=== PATIENT | male | born 1990 | race Caucasian/White ===

== ENCOUNTER 2016-12-15 23:14 | Emergency (ER) | payer OTHER ==
[2016-12-16] MEDS ORDERED: NORMAL SALINE 1000 ML 1,000 ML IV ONE (06:28)
[2016-12-16 07:14] LABS: ABSOLUTE BASOPHILS # (AUTO) 0.1 10^3/uL (0.0-0.2); ABSOLUTE EOSINOPHILS # (AUTO) 0.2 10^3/uL (0.0-0.6); ABSOLUTE LYMPHOCYTES (AUTO) 1.4 10^3/uL (0.5-4.7); ABSOLUTE MONOCYTES (AUTO) 1.1 10^3/uL (0.1-1.4); ABSOLUTE NEUT (AUTO) 9.5 10^3/uL (1.7-8.2); BASOPHILS % (AUTO) 0.4 % (0-2); EOSINOPHILS % (AUTO) 1.7 % (0-6); HEMOGLOBIN 15.9 g/dL (13.5-17.0); HGB HCT DIFFERENCE 2.7; LYMPHOCYTES % (AUTO) 11.7 % (13-45); MEAN CORPUSCULAR HEMOGLOBIN 31.4 pg (27.0-33.4); MEAN CORPUSCULAR HGB CONC 35.4 g/dL (32.0-36.0); MEAN CORPUSCULAR VOLUME 89 fl (80-97); MONOCYTES % (AUTO) 8.6 % (3-13); RED BLOOD COUNT 5.08 10^6/uL (4.35-5.55); RED CELL DISTRIBUTION WIDTH 13.3 % (11.5-14.0); SEGMENTED NEUTROPHILS % (AUTO) 77.6 % (42-78); WHITE BLOOD COUNT 12.3 10^3/uL (4.0-10.5)
--- NOTE | 2016-12-16 07:18 | EKG REPORT ---
SEVERITY:- NORMAL ECG - SINUS RHYTHM : Confirmed by: Uday Grullon MD 16-Dec-2016 07:18:07
[2016-12-16 07:37] LABS: ANION GAP 13 (5-19); BLOOD UREA NITROGEN 12 mg/dL (7-20); CALCIUM 9.9 mg/dL (8.4-10.2); CARBON DIOXIDE 26 mmol/L (22-30); CHLORIDE 102 mmol/L (98-107); CREATINE KINASE 79 U/L (55-170); CREATININE RESULT 0.86 mg/dL (0.52-1.25); GLUCOSE 96 mg/dL (75-110); POTASSIUM 4.3 mmol/L (3.6-5.0); SODIUM 141.2 mmol/L (137-145)
[2016-12-16] MEDS ORDERED: KETOROLAC TROMETHAMINE INJ/PF 30 MG/1 ML SDV IV ONE (07:38)
[2016-12-16 08:23] LABS: APPEARANCE,URINE CLEAR; BILIRUBIN,URINE NEGATIVE (NEGATIVE); GLUCOSE, URINE NEGATIVE (NEGATIVE); KETONES,URINE NEGATIVE (NEGATIVE); LEUKOCYTE ESTERASE,URINE NEGATIVE (NEGATIVE); NITRITE,URINE NEGATIVE (NEGATIVE); PROTEIN,URINE NEGATIVE (NEGATIVE); UROBILINOGEN,URINE NEGATIVE mg/dL (<2.0)
[2016-12-16 08:46] LABS: URINE BARBITURATES SCREEN NEGATIVE; URINE METHADONE SCREEN NEGATIVE; URINE OPIATES LOW NEGATIVE; URINE PHENCYCLIDINE SCREEN NEGATIVE
[2016-12-16 09:32] VITALS: BP 123/70
--- NOTE | 2016-12-16 09:39 | ER Document Report ---
ED General - General Chief Complaint: Pain All Over Stated Complaint: RAPID HEART RATE/SORE THROAT TRAVEL OUTSIDE OF THE [place] IN LAST 30 DAYS: No - HPI Patient complains to provider of: elevated heart rate myalgias Notes: Patient coming in for evaluation of elevated heart rate feeling fatigued with diffuse myalgias. Patient states similar feeling when he was diagnosed pericarditis. Patient denies getting a flu shot. Patient states no sick contacts no recent antibiotics. Patient upon my evaluation states no medical problems resting comfortably in the bed. While sleeping patient does have a resting heart rate of 90 upon awakening patient's Re: Does go to 100 115. Denies any recent trauma travel denies history of blood clots nausea history of DVT PE - Related Data Allergies/Adverse Reactions: No Known Allergies Allergy (Unverified 12/15/16 23:38) Past Medical History - Social History Smoking Status: Never Smoker Chew tobacco use (# tins/day): No Frequency of alcohol use: None Drug Abuse: None Family History: None Patient has suicidal ideation: No Patient has homicidal ideation: No Renal/ Medical History: Denies: Hx Peritoneal Dialysis Surgical Hx: Negative - Immunizations Hx Diphtheria, Pertussis, Tetanus Vaccination: Yes Review of Systems - Review of Systems Constitutional: Weakness, Other - Myalgias EENT: No symptoms reported Cardiovascular: Palpitations Respiratory: No symptoms reported Gastrointestinal: No symptoms reported Genitourinary: No symptoms reported Male Genitourinary: No symptoms reported Musculoskeletal: No symptoms reported Skin: No symptoms reported Hematologic/Lymphatic: No symptoms reported Neurological/Psychological: No symptoms reported -: Yes All other systems reviewed and negative Physical Exam - Vital signs Vitals: Temp Pulse Resp BP Pulse Ox 98.6 F 110 H 22 H 143/97 H 97 12/15/16 23:38 12/15/16 23:38 12/15/16 23:38 12/15/16 23:38 12/15/16 23:38 Interpretation: Tachycardic - General General appearance: Appears well, Alert - HEENT Head: Normocephalic, Atraumatic Eyes: Normal Pupils: PERRL - Respiratory Respiratory status: No respiratory distress Chest status: Nontender Breath sounds: Normal Chest palpation: Normal - Cardiovascular Rhythm: Tachycardia Heart sounds: Normal auscultation Murmur: No - Abdominal Inspection: Normal Distension: No distension Bowel sounds: Normal Tenderness: Nontender Organomegaly: No organomegaly - Back Back: Normal, Nontender - Extremities General upper extremity: Normal inspection, Nontender, Normal color, Normal ROM , Normal temperature General lower extremity: Normal inspection, Nontender, Normal color, Normal ROM , Normal temperature, Normal weight bearing. No: Dallin's sign - Neurological Neuro grossly intact: Yes Cognition: Normal Orientation: AAOx4 [place] Coma Scale Eye Opening: Spontaneous [place] Coma Scale Verbal: Oriented [place] Coma Scale Motor: Obeys Commands [place] Coma Scale Total: 15 Speech: Normal Motor strength normal: LUE, RUE, LLE, RLE Sensory: Normal - Psychological Associated symptoms: Normal affect, Normal mood - Skin Skin Temperature: Warm Skin Moisture: Dry Skin Color: Normal Course - Re-evaluation Re-evalutation: 12/16/16 13:33 Patient coming in for myalgias tachycardia. Patient's workup does not show any signs of pericarditis. Workup does show signs of dehydration with elevated specific gravity. Patient's symptoms improved after IV fluids. Patient was encouraged to take Tylenol Motrin for pain control. I will give the patient prescription for Naprosyn. Patient also be given medication for nausea patient was able tolerate by mouth will be discharged home more likely has a viral syndrome viral etiology of the symptoms. - Vital Signs Vital signs: Temp Pulse Resp BP Pulse Ox 97.7 F 79 21 H 123/70 98 12/16/16 09:32 12/16/16 04:45 12/16/16 09:01 12/16/16 09:01 12/16/16 09:01 - Laboratory Result Diagrams: 12/16/16 07:00 12/16/16 07:00 Laboratory results interpreted by me: 12/16/16 07:00 WBC 12.3 H Lymphocytes % 11.7 L Absolute Neutrophils 9.5 H Discharge - Discharge Clinical Impression: Dehydration, Viral syndrome Condition: Good Disposition: HOME, SELF-CARE Instructions: Viral Syndrome ([facility]), Dehydration ([facility]) Additional Instructions: Your EKG and laboratory studies showed no signs of pericarditis today. Please follow-up with your primary care physician in approximately one week for further evaluation. I will send you home medication to help out with your symptoms. Naproxen for pain take as directed. Zofran for nausea and also Phenergan for nausea. Please drink plenty water to stay hydrated. Prescriptions: Promethazine HCl [Phenergan 25 mg Tablet] 25 mg PO Q4HP PRN #30 tablet PRN Reason: Naproxen [Naprosyn 250 mg Tablet] 250 mg PO DAILY PRN #30 tablet PRN Reason: Ondansetron [Zofran Odt 4 mg Tablet] 4 mg PO Q6 #30 tab.rapdis Forms: Return to Work
== END 2016-12-16 09:47 | disposition home or self-care (01) ==
LOC: ER 23:14
DX: E86.0 Dehydration (principal); B34.9 Viral infection, unspecified; R00.0 Tachycardia, unspecified; R53.83 Other fatigue; M79.1 Myalgia; R53.1 Weakness; R00.2 Palpitations; Z86.79 Personal history of other diseases of the circulatory system
CPT/HCPCS: 93005; 99284; 96374; 36415; 87070; 87880; 82550; 85025; 80048; 81001; 84484; 80307; 87804; 71020; 93010; J1885; J7030

== ENCOUNTER 2017-08-26 16:49 | Emergency (ER) | payer OTHER ==
[2017-08-26 16:58] VITALS: BP 137/75
--- NOTE | 2017-08-26 17:14 | ER Document Report ---
ED Medical Screen (RME) - General Chief Complaint: Sore Throat Stated Complaint: SORE THROAT Time Seen by Provider: 08/26/17 17:10 Mode of Arrival: Ambulatory Information source: Patient Notes: Patient is a 27 year old who presents with anterior chest pain, body aches, sore throat, and diaphoresis that started 2 days ago. He has history of pericarditis and is currently wearing an event monitor on his left anterior chest [facility] for palpitations he has been experiencing. He denies any SOB, abdominal pain, n/v/d. TRAVEL OUTSIDE OF THE [place] IN LAST 30 DAYS: No - Related Data Allergies/Adverse Reactions: No Known Allergies Allergy (Verified 08/26/17 16:53) Past Medical History Renal/ Medical History: Denies: Hx Peritoneal Dialysis - Immunizations Hx Diphtheria, Pertussis, Tetanus Vaccination: Yes Physical Exam - Vital signs Vitals: Temp Pulse Resp BP Pulse Ox 98.5 F 89 16 137/75 H 98 08/26/17 16:57 08/26/17 16:57 08/26/17 16:57 08/26/17 16:57 08/26/17 16:57 - Notes Notes: PHYSICAL EXAM: CONSTITUTIONAL: Alert and oriented, well-appearing and in no acute distress. HENT: Normocephalic, atraumatic. Oropharynx clear without erythema, tonsilar exudate or malocclusion. HEART: Regular rate and rhythm without murmurs. Chest pain is not reproducible on exam. LUNGS: CTAB and equal. No wheezes, rales or rhonchi. Course - Vital Signs Vital signs: Temp Pulse Resp BP Pulse Ox 98.5 F 89 16 137/75 H 98 08/26/17 16:57 08/26/17 16:57 08/26/17 16:57 08/26/17 16:57 08/26/17 16:57
[2017-08-26 17:49] LABS: ABSOLUTE EOSINOPHILS # (AUTO) 0.2 10^3/uL (0.0-0.6); ABSOLUTE LYMPHOCYTES (AUTO) 1.4 10^3/uL (0.5-4.7); ABSOLUTE NEUT (AUTO) 9.2 10^3/uL (1.7-8.2); BASOPHILS % (AUTO) 0.4 % (0-2); EOSINOPHILS % (AUTO) 1.5 % (0-6); HEMOGLOBIN 15.7 g/dL (13.5-17.0); HGB HCT DIFFERENCE 3.1; LYMPHOCYTES % (AUTO) 11.8 % (13-45); MEAN CORPUSCULAR HEMOGLOBIN 31.4 pg (27.0-33.4); MEAN CORPUSCULAR HGB CONC 35.6 g/dL (32.0-36.0); MEAN CORPUSCULAR VOLUME 88 fl (80-97); MONOCYTES % (AUTO) 8.8 % (3-13); RED BLOOD COUNT 4.99 10^6/uL (4.35-5.55); RED CELL DISTRIBUTION WIDTH 13.2 % (11.5-14.0); SEGMENTED NEUTROPHILS % (AUTO) 77.5 % (42-78); WHITE BLOOD COUNT 11.8 10^3/uL (4.0-10.5)
--- NOTE | 2017-08-26 17:55 | RADIOLOGY REPORT (SQ) ---
EXAM DESCRIPTION: CHEST PA/LAT COMPLETED DATE/TIME: 08/26/2017 5:47 pm REASON FOR STUDY: chest pain COMPARISON: 12/16/2016 EXAM PARAMETERS: NUMBER OF VIEWS: two views TECHNIQUE: Digital Frontal and Lateral radiographic views of the chest acquired. RADIATION DOSE: NA LIMITATIONS: none FINDINGS: LUNGS AND PLEURA: No opacities, masses or pneumothorax. No pleural effusion. MEDIASTINUM AND HILAR STRUCTURES: No masses or contour abnormalities. HEART AND VASCULAR STRUCTURES: Heart normal size. No evidence for failure. BONES: No acute findings. HARDWARE: Electronic device the on the left upper chest. OTHER: No other significant finding. IMPRESSION: NO SIGNIFICANT RADIOGRAPHIC FINDING IN THE CHEST. TECHNICAL DOCUMENTATION: JOB ID: [id number] [employer]- All Rights Reserved
--- NOTE | 2017-08-26 17:56 | EKG REPORT ---
SEVERITY:- NORMAL ECG - SINUS RHYTHM : Confirmed by: Uday Grullon MD 26-Aug-2017 17:55:31
--- NOTE | 2017-08-26 18:05 | ER Document Report ---
ED General - General Chief Complaint: Sore Throat Stated Complaint: SORE THROAT Time Seen by Provider: 08/26/17 17:10 Mode of Arrival: Ambulatory Notes: 27 male with a history of pericarditis diagnosed 1 year ago presents with 2 days of generalized body aches sore throat and cervical lymphadenopathy. Constant. Better with Motrin. No fevers. He does have some intermittent shortness of breath and positional right-sided supraclavicular and chest pain which he states is nonexertional and dull in nature. Does not remind of pericarditis. No leg swelling. No current shortness of breath. Last took Motrin yesterday. Did receive a flu vaccine. Is not on dialysis or does not have renal failure. Currently being evaluated for "heart problems" with a Zile patch. Has not had a stress test. TRAVEL OUTSIDE OF THE [place] IN LAST 30 DAYS: No - Related Data Allergies/Adverse Reactions: No Known Allergies Allergy (Verified 08/26/17 16:53) Past Medical History - General Information source: Patient - Social History Smoking Status: Never Smoker Chew tobacco use (# tins/day): No Frequency of alcohol use: None Drug Abuse: None Family History: None Patient has suicidal ideation: No Patient has homicidal ideation: No Renal/ Medical History: Denies: Hx Peritoneal Dialysis - Immunizations Hx Diphtheria, Pertussis, Tetanus Vaccination: Yes Review of Systems - Review of Systems Notes: REVIEW OF SYSTEMS GEN: Denies fever, chills, weight loss ENT: Denies sore throat, nasal discharge, ear pain EYES: Denies blurry vision, eye pain, discharge CV: Chest pain RESP: Shortness of breath GI: Denies abdominal pain, nausea, vomiting, diarrhea MSK: Denies joint pain/swelling, edema, SKIN: Denies rash, skin lesions LYMPH: Denies swollen glands/lymph nodes NEURO: Denies headache, focal weakness or numbness, dizziness PSYCH: Denies depression, suicidal or homicidal ideation PHYSICAL EXAMINATION General: No acute distress, well-nourished Head: Atraumatic, normocephalic ENT: Mouth normal, oropharynx moist, no exudates or tonsillar enlargement Eyes: Conjunctiva normal, pupils equal, lids normal Neck: No JVD, supple, no guarding CVS: Normal rate, regular rhythm, no murmurs. Right parasternal chest tenderness. Resp: No resp distress, equal and normal breath sounds bilaterally GI: Nondistended, soft, no tenderness to palpation, no rebound or guarding Ext: No deformities, no edema, normal range of motion in upper and lower ext Back: No CVA or midline TTP Skin: No rash, warm Lymphatic: N anterior cervical lymphadenopathy right greater than left. No right supraclavicular lymphadenopathy palpated. Although the patient is tender in the right supraclavicular fossa. Neuro: Awake, alert. Face symmetric. GCS 15. Physical Exam - Vital signs Vitals: Temp Pulse Resp BP Pulse Ox 98.5 F 89 16 137/75 H 98 08/26/17 16:57 08/26/17 16:57 08/26/17 16:57 08/26/17 16:57 08/26/17 16:57 Course - Re-evaluation Re-evalutation: 08/26/17 18:07 Patient presents with nonspecific myalgias lymphadenopathy with some reproducible chest pain. He has history of pericarditis in the past. His physical exam is normal his vital signs are normal without fever, despite no antipyretics. He has mild anterior cervical lymphadenopathy, however no other lymphadenopathy visualized. Recently negative HIV test. Differential includes viral syndrome less likely influenza without fever headache, do not believe testing is indicated for this. That said he is also out of the window for Tamiflu. I did do an EKG to evaluate for pericarditis as well as an ultrasound to look for pericardial effusion both of which were normal. Chest x-ray is normal so no pneumonia. Advised supportive care, given standard return precautions and [facility] No arrhythmias in the ED. I have discussed with the patient there likely diagnosis, aftercare plan, follow -up plans and my usual and customary return precautions. They verbalized understanding of this. 08/26/17 18:08 - Vital Signs Vital signs: Temp Pulse Resp BP Pulse Ox 98.5 F 89 16 137/75 H 98 08/26/17 16:57 08/26/17 16:57 08/26/17 16:57 08/26/17 16:57 08/26/17 16:57 - Laboratory Result Diagrams: 08/26/17 17:35 08/26/17 17:35 Laboratory results interpreted by me: 08/26/17 17:35 WBC 11.8 H Lymphocytes % 11.8 L Absolute Neutrophils 9.2 H - Diagnostic Test Radiology reviewed: Image reviewed, Reports reviewed - EKG Interpretation by Me EKG shows normal: Sinus rhythm Rate: Normal Rhythm: NSR - No ST-T wave or MO changes Procedures - Ultrasound/Bedside Ultrasound/Bedside Time completed: 18:00 Ultrasound: Other - Cardiac ultrasound. Performed via the subcostal and parasternal long approaches. Excellent cardiac squeeze with no pericardial effusion visualized. Discharge - Discharge Clinical Impression: Myalgia, Viral syndrome Condition: Good Disposition: HOME, SELF-CARE Instructions: Acetaminophen, Viral Syndrome ([facility]) Additional Instructions: Please follow-up with your primary care doctor at the [place] regarding her heart monitor and also to get a recheck from what is likely a viral syndrome in a couple of days. If your chest pain changes becomes exertional, or gets worse please return to the ER immediately. Otherwise take ibuprofen and Tylenol and keep well-hydrated. Referrals: MECHE BOLANOS MD [Primary Care Provider] - Follow up in 3-5 days
[2017-08-26 18:09] LABS: ANION GAP 12 (5-19); BLOOD UREA NITROGEN 12 mg/dL (7-20); CALCIUM 9.9 mg/dL (8.4-10.2); CARBON DIOXIDE 26 mmol/L (22-30); CHLORIDE 102 mmol/L (98-107); CREATINE KINASE 38 U/L (55-170); CREATININE RESULT 1.09 mg/dL (0.52-1.25); GLUCOSE 100 mg/dL (75-110); SODIUM 139.8 mmol/L (137-145)
[2017-08-26 18:22] LABS: CREATINE KINASE MB < 0.22 ng/mL (<4.55); TROPONIN I < 0.012 ng/mL
== END 2017-08-26 18:25 | disposition home or self-care (01) ==
LOC: ER 16:49
DX: B34.9 Viral infection, unspecified (principal); M79.1 Myalgia; J02.9 Acute pharyngitis, unspecified; R59.1 Generalized enlarged lymph nodes
CPT/HCPCS: 36415; 71020; 80048; 82550; 82553; 84484; 85025; 93005; 93010; 99284

== ENCOUNTER 2018-09-07 18:24 | Emergency (ER) | payer OTHER ==
[2018-09-07] MEDS ORDERED: ONDANSETRON HCL INJ/PF 4 MG/2 ML SDV IV ONE (19:20)
[2018-09-07] MEDS ORDERED: NORMAL SALINE 1000 ML 1,000 ML IV ONE ×2 (19:20→21:04)
[2018-09-07] MEDS ORDERED: ONDANSETRON 4 MG TAB.RAPDIS PO ONE (19:21)
[2018-09-08 00:47] LABS: HEMATOCRIT 49.8 % (37.9-51.0); HEMOGLOBIN 17.5 g/dL (13.5-17.0); MEAN CORPUSCULAR HEMOGLOBIN 31.4 pg (27.0-33.4); MEAN CORPUSCULAR HGB CONC 35.2 g/dL (32.0-36.0); MEAN CORPUSCULAR VOLUME 89 fl (80-97); PLATELET COUNT 207 10^3/uL (150-450); RED BLOOD COUNT 5.58 10^6/uL (4.35-5.55); WHITE BLOOD COUNT 14.7 10^3/uL (4.0-10.5)
[2018-09-08 00:51] LABS: ALANINE AMINOTRANSFERASE 37 U/L (21-72); ALBUMIN 5.1 g/dL (3.5-5.0); ALKALINE PHOSPHATASE 82 U/L (38-126); ANION GAP 15 (5-19); ASPARTATE AMINO TRANSFERASE 34 U/L (17-59); BILIRUBIN,DIRECT 0.3 mg/dL (0.0-0.4); BILIRUBIN,TOTAL 1.6 mg/dL (0.2-1.3); BLOOD UREA NITROGEN 27 mg/dL (7-20); CALCIUM 9.8 mg/dL (8.4-10.2); CARBON DIOXIDE 21 mmol/L (22-30); CHLORIDE 100 mmol/L (98-107); GLUCOSE 127 mg/dL (75-110); POTASSIUM 5.2 mmol/L (3.6-5.0); SODIUM 136.2 mmol/L (137-145)
[2018-09-08 01:04] LABS: APPEARANCE,URINE CLEAR; BILIRUBIN,URINE NEGATIVE (NEGATIVE); COLOR,URINE AMBER; GLUCOSE, URINE NEGATIVE (NEGATIVE); KETONES,URINE NEGATIVE (NEGATIVE); LEUKOCYTE ESTERASE,URINE NEGATIVE (NEGATIVE); NITRITE,URINE NEGATIVE (NEGATIVE); PROTEIN,URINE NEGATIVE (NEGATIVE); URINE SPECIFIC GRAVITY 1.029; UROBILINOGEN,URINE NEGATIVE mg/dL (<2.0)
[2018-09-08 01:04] LABS: ABSOLUTE LYMPHOCYTES# (MANUAL) 0.7 10^3/uL (0.5-4.7); ABSOLUTE MONOCYTES # (MANUAL) 0.9 10^3/uL (0.1-1.4); ABSOLUTE NEUTROPHILS# (MANUAL) 13.1 10^3/uL (1.7-8.2); BASOPHILS % (MANUAL) 0 % (0-2); EOSINOPHILS % (MANUAL) 0 % (0-6); LYMPHOCYTES % (MANUAL) 4 % (13-45); MONOCYTES % (MANUAL) 6 % (3-13); SEGMENTED NEUTROPHILS % (MAN) 89 % (42-78); TOTAL CELLS COUNTED 100
[2018-09-08 01:05] LABS: PLATELET COMMENT ADEQUATE; PLATELET LARGE PRESENT; SCHISTOCYTES SLIGHT; TOXIC GRANULATION 1+
[2018-09-08] MEDS ORDERED: ONDANSETRON ODT 4 MG TAB (6 TAB/ER DISP) PO PRN (02:32)
--- NOTE | 2018-09-08 02:35 | ER Document Report ---
ED General - General Chief Complaint: Nausea/Vomiting/Diarrhea Stated Complaint: VOMITING, DIARRHEA, SOB Time Seen by Provider: 09/07/18 22:59 Notes: Patient is a pleasant 28-year-old male presents with vomiting diarrhea. Several family members in the household have had the same symptoms. No recent travel outside the country. No eating of undercooked or raw foods. No drinking of unfiltered water. Patient denies any fevers. He has some intermittent crampy abdominal pain associate with the diarrhea. No vomiting of blood. No blood in his stool. No other complaints at this time. TRAVEL OUTSIDE OF THE [place] IN LAST 30 DAYS: No - Related Data Allergies/Adverse Reactions: No Known Allergies Allergy (Verified 09/07/18 18:25) Past Medical History - Social History Smoking Status: Current Some Day Smoker Chew tobacco use (# tins/day): No Frequency of alcohol use: Occasional Drug Abuse: None Family History: None Patient has suicidal ideation: No Patient has homicidal ideation: No Renal/ Medical History: Denies: Hx Peritoneal Dialysis - Immunizations Hx Diphtheria, Pertussis, Tetanus Vaccination: Yes Review of Systems - Review of Systems Notes: My Normal Review Basic REVIEW OF SYSTEMS: CONSTITUTIONAL : Denies fever, chills, or sweats. EENT: Denies eye, ear, throat, or mouth pain or symptoms. Denies nasal or sinus congestion. RESPIRATORY: Denies cough, cold, or chest congestion. Denies shortness of breath, difficulty breathing, or wheezing. GASTROINTESTINAL: Crampy abdominal pain. vomiting and diarrhea. GENITOURINARY: Denies difficulty urinating, painful urination, burning, frequency, or blood in urine. MUSCULOSKELETAL: Denies neck or back pain or joint pain or swelling. SKIN: Denies rash or skin lesions. NEUROLOGICAL: Denies altered mental status or loss of consciousness. Denies h eadache. Denies weakness or paralysis or loss of use of either side. Denies problems with gait or speech. Denies sensory or motor loss. ALL OTHER SYSTEMS REVIEWED AND NEGATIVE. Physical Exam - Vital signs Vitals: Temp Pulse Resp BP Pulse Ox 97.4 F 120 H 24 H 134/76 H 100 09/07/18 18:30 09/07/18 18:30 09/07/18 18:30 09/07/18 18:30 09/07/18 18:30 - Notes Notes: General Appearance: Well nourished, alert, cooperative, no acute distress, mild obvious discomfort. Dehydrated pain. Vitals: reviewed, See vital signs table. Head: no swelling or tenderness to the head Eyes: PERRL, EOMI, Conjuctiva clear Mouth: Some decreased moisture Neck: Supple, no neck tenderness, No thyromegaly Lungs: No wheezing, No rales, No rhonci, No accessory muscle use, good air exchange bilaterally. Heart: Tachycardic rate, Regular rythm, No murmur, no rub Abdomen: Normal BS, soft, No rigidity, No reducible abdominal tenderness to palpation, No guarding, no rebound, no abdominal masses, no organomegaly Extremities: good pulses in all extremities, no swelling or tenderness in the e xtremities, no edema. Skin: warm, dry, appropriate color, no rash Neuro: speech clear, oriented x 3, normal affect, responds appropriately to questions. Course - Re-evaluation Re-evalutation: 09/08/18 05:38 Patient is feeling much improved after the Zofran. He still having some diarrhea but his nausea and vomiting is under control. He has been up walking around without any difficulty. Clinically he looks much better. He does not have any evidence of electrolyte abnormality on his blood work. I feel he is safe to be discharged home. Strongly encouraged him return to ER if he has recurrent abdominal pain, intractable vomiting despite the Zofran, any blood in his emesis or stool, or if he feels unwell. Patient agrees with plan will be discharged home. Dictation of this chart was performed using voice recognition software; therefore, there may be some unintended grammatical errors. - Vital Signs Vital signs: Temp Pulse Resp BP Pulse Ox 98.6 F 99 20 126/80 H 95 09/08/18 03:03 09/08/18 03:03 09/08/18 03:03 09/08/18 03:03 09/08/18 03:03 - Laboratory Result Diagrams: 09/08/18 00:24 09/08/18 00:24 Laboratory results interpreted by me: 09/08/18 09/08/18 00:24 00:24 WBC 14.7 H RBC 5.58 H Hgb 17.5 H Seg Neuts % (Manual) 89 H Lymphocytes % (Manual) 4 L Abs Neuts (Manual) 13.1 H Sodium 136.2 L Potassium 5.2 H Carbon Dioxide 21 L BUN 27 H Glucose 127 H Total Bilirubin 1.6 H Albumin 5.1 H Discharge - Discharge Clinical Impression: Vomiting and diarrhea Condition: Good Disposition: HOME, SELF-CARE Additional Instructions: Please continue to drink non-caffeinated liquids. Please return to the ER if you have bloody vomit, blood in her stool, worsening abdominal pain, or if you feel your worsening in any way. Please return to the ER if you have recurrent vomiting despite taking the Zofran. Please follow-up with your doctor in 2-3 days for reevaluation. I have prescribed you Zofran. You can take 1 tablet every 4 hours for nausea. Prescriptions: Ondansetron [Zofran Odt 4 mg Tablet] 1 tab PO Q4H PRN #15 tab.rapdis PRN Reason: For Nausea/Vomiting Forms: Return to Work [facility] - Follow up in 3-5 days
[2018-09-08 03:15] VITALS: BP 126/80
== END 2018-09-08 03:20 | disposition home or self-care (01) ==
LOC: ER 18:24
DX: R11.2 Nausea with vomiting, unspecified (principal); R19.7 Diarrhea, unspecified; R06.02 Shortness of breath; R10.9 Unspecified abdominal pain; F17.200 Nicotine dependence, unspecified, uncomplicated
CPT/HCPCS: 99284; 96360; 36415; 85025; 80053; 81001; J7030